=== PATIENT | female | born 1975 | race Caucasian/White ===

== ENCOUNTER → 2024-07-08 | Outpatient (CLI) | payer MEDICAID, SELFPAY ==
--- NOTE | 2024-07-08 13:25 | XR_ITS ---
Examination: Abdomen sonogram, Limited Date and time of exam: July 08, 2024 1345 hours INDICATIONS: Palpable lumps in the lower abdomen with tenderness 4 months Technique: Real-time ellison scale transabdominal sonographic images of the upper abdomen obtained. Findings: No cystic or solid mass depicted in the right upper anterior abdomen IMPRESSION: No cystic or solid mass noted
== END | disposition home or self-care (01) ==
PROVIDERS: PCP Nurse Practitioner Family; Referring Provider Nurse Practitioner Family; Visit Provider Nurse Practitioner Family
DX: R19.01 Right upper quadrant abdominal swelling, mass and lump (principal); R10.9 Unspecified abdominal pain
CPT/HCPCS: 76705